=== PATIENT | male | born 1995 | race Caucasian/White ===

== ENCOUNTER 2019-12-28 12:15 | Day surgery (SDC) | payer OTHER ==
[2019-12-24 17:36] VITALS: BMI 18.8
[2019-12-28] MEDS ORDERED: oxyCODONE HCL 5 MG TABLET PO PRN (15:48)
[2019-12-28] MEDS ORDERED: ONDANSETRON 4 MG/2 ML VIAL IVPUSH PRN (15:48)
[2019-12-28] MEDS ORDERED: LACTATED RINGERS SOLUTION 1,000 ML IV SCH (16:00)
[2019-12-28] MEDS ORDERED: MIDAZOLAM HCL 2 MG/2 ML SINGLE DOSE VIAL ONE ×3 (16:42→16:50)
[2019-12-28] MEDS ORDERED: SUCCINYLCHOLINE CHLORIDE 200 MG/10 ML SYRINGE ONE (16:43)
[2019-12-28] MEDS ORDERED: PROPOFOL 20 ML ONE (16:51)
--- NOTE | 2019-12-28 16:57 | OP ---
Operative Note - Note: Operative Date: 12/28/19 Pre-Operative Diagnosis: Left renal stone Operation: Left ESWL Findings: 7 mm upper renal stone Post-Operative Diagnosis: Same as Pre-op Anesthesia: Fractional Estimated Blood Loss (mls): 0 Operative Report Dictated: Yes
[2019-12-28] MEDS ORDERED: oxyCODONE HCL 5 MG TABLET ONE (18:37)
[2019-12-28 18:49] VITALS: TEMP 98.1
[2019-12-28 19:15] VITALS: BP 121/71; PULSE 74
--- NOTE | 2019-12-29 15:59 | OP ---
DATE OF OPERATION: 12/28/2019 PREOPERATIVE DIAGNOSIS: Left renal stone. POSTOPERATIVE DIAGNOSIS: Left renal stone. PROCEDURE: Left extracorporeal shock-wave lithotripsy. ATTENDING: Rigo Garg MD ANESTHESIA: Fractional. DESCRIPTION OF PROCEDURE: The patient was brought in the operating room and placed in a supine position on the operating room table. Ultrasonography and fluoroscopy were performed. A 6-mm stone was noted in the left upper pole of the kidney. At this point, anesthesia and preoperative antibiotics were administered. Shock-wave lithotripsy was then started; 2500 impulses at 18 joules of power were administered to the stone. Excellent fragmentation of the stone was noted. The patient tolerated the procedure very well. No complications were noted. DISPOSITION OF THE PATIENT: To recovery room. RIGO GARG M.D. [id number]
== END 2019-12-28 19:05 | disposition home or self-care (01) ==
LOC: JASU-SURG 12:15
PROVIDERS: ATTEND Urology
PROC: 0TF4XZZ Fragmentation in Left Kidney Pelvis, External Approach (ICD-10-PCS; principal; 2019-12-28 14:45)
DX: N20.0 Calculus of kidney (principal)

== ENCOUNTER 2020-01-31 10:32 | Emergency (ER) | payer OTHER ==
[2020-01-31 10:36] VITALS: TEMP 97.6; BMI 18.1
[2020-01-31] MEDS ORDERED: MAG HYDROX/AL HYDROX/SIMETH 30 ML UNIT-DOSE CUP PO ONE (11:03)
[2020-01-31] MEDS ORDERED: FAMOTIDINE 20 MG/50 ML IVPB 20 MG/50 ML MG IVPB ONE ×2 (11:03→11:09)
[2020-01-31] MEDS ORDERED: METOCLOPRAMIDE HCL INJECTION 10 MG/2 ML VIAL IVPUSH ONE (11:03)
[2020-01-31] MEDS ORDERED: LACTATED RINGERS SOLUTION 1000 ML INFUS.BAG IV ONE (11:03)
--- NOTE | 2020-01-31 11:05 | PDOC ---
History of Present Illness - General Chief Complaint: Nausea/Vomiting Stated Complaint: VOMITING Time Seen by Provider: 01/31/20 10:49 History Source: Patient - History of Present Illness Initial Comments: 01/31/20 11:23 Mr. Cortez is a 24 y/o M w/no PMH p/w four days of nausea, vomiting, abdominal pain. He reports that his symptoms began the morning following significant EtOH intake. He reports that starting on morning he began to experience 8/10 non-radiating bilateral lower quadrant aching abdominal pain. He reports being unable to tolerate any food po aside from small sips of water, with other intake resulting in immediate nbnb vomiting. He reports approx x6 nbnb vomiting since last night. He denies diarrhea, constipation, fevers, chest pain, sob. No prior abdominal surgeries, no sick contacts. Past History - Past Medical History Allergies/Adverse Reactions: Allergies Allergy/AdvReac Type Severity Reaction Status Date / Time No Known Allergies Allergy Verified 01/31/20 10:36 Home Medications: Ambulatory Orders NK [No Known Home Medication] 12/24/19 COPD: No - Immunization History Immunization Up to Date: Yes - Psycho Social/Smoking Cessation Hx Smoking History: Current every day smoker Have you smoked in the past 12 months: Yes Information on smoking cessation initiated: No Hx Alcohol Use: Yes (3XWK) Drug/Substance Use Hx: Yes (MARIJUANA) Substance Use Type: Marijuana Hx Substance Use Treatment: No Review of Systems - Review of Systems Able to Perform ROS?: Yes Comments:: 01/31/20 11:30 GENERAL/CONSTITUTIONAL:Chills. Body aches. No fever. No weakness. HEAD, EYES, EARS, NOSE AND THROAT: No change in vision. No ear pain or discharge. No sore throat. CARDIOVASCULAR: No chest pain or shortness of breath RESPIRATORY: No cough, wheezing, or hemoptysis. GASTROINTESTINAL: No nausea, vomiting, diarrhea or constipation. GENITOURINARY: No dysuria, frequency, or change in urination. MUSCULOSKELETAL: No joint or muscle swelling or pain. No neck or back pain. SKIN: No rash NEUROLOGIC: No headache, vertigo, loss of consciousness, or change in strength/sensation. ENDOCRINE: No increased thirst. No abnormal weight change HEMATOLOGIC/LYMPHATIC: No anemia, easy bleeding, or history of blood clots. ALLERGIC/IMMUNOLOGIC: No hives or skin allergy. *Physical Exam - Vital Signs Last Vital Signs Temp Pulse Resp BP Pulse Ox 97.6 F 117 H 18 155/94 98 01/31/20 10:33 01/31/20 10:33 01/31/20 10:33 01/31/20 10:33 01/31/20 10:33 - Physical Exam 01/31/20 14:49 GENERAL: Awake, alert, and fully oriented, in no acute distress HEAD: No signs of trauma, normocephalic, atraumatic EYES: PERRLA, EOMI, sclera anicteric, conjunctiva clear ENT: Auricles normal inspection, hearing grossly normal, nares patent, oropharynx clear without exudates. Moist mucosa NECK: Normal ROM, supple, no lymphadenopathy, JVD, or masses LUNGS: No distress, speaks full sentences, clear to auscultation bilaterally HEART: Regular rate and rhythm, normal S1 and S2, no murmurs, rubs or gallops, peripheral pulses normal and equal bilaterally. ABDOMEN: Soft, nontender, normoactive bowel sounds. No guarding, no rebound. N o masses EXTREMITIES : Normal inspection, Normal range of motion, no edema. No clubbing or cyanosis NEUROLOGICAL: Cranial nerves II through XII grossly intact. Normal speech, normal gait, no focal sensorimotor deficits SKIN: Warm, Dry, normal turgor, no rashes or lesions noted ED Treatment Course - LABORATORY CBC & Chemistry Diagram: 01/31/20 11:26 01/31/20 11:26 Medical Decision Making - Medical Decision Making 24M w/no PMH p/w acute onset N/V/abdominal pain morning after EtOH intake. Ddx pancreatitis, viral GI infection, PUD. Patient requests HIV test. Plan: CBC CMP EKG CXR Pepcid Maalox Zofran Reglan 1L LR HIV test Dispo: Discharge pending reassessment --- CBC, CMP - indicative of hemoconcentration. Cr elevation likely pre-renal. Plan for additional fluid bolus. HIV - negative --- He reports resolution of symptoms s/p medications. Plan for po challenge. --- He reports po intake without difficulty, nausea, or vomiting. Plan for discharge with close PCP follow up. Discharge - Discharge Information Problems reviewed: Yes Clinical Impression/Diagnosis: Nausea and vomiting Qualifiers: Vomiting type: unspecified Vomiting Intractability: non-intractable Qualified Code(s): R11.2 - Nausea with vomiting, unspecified Condition: Stable Disposition: HOME - Admission No - Follow up/Referral Referrals: [facility] [place] [facility] at [place] [Provider Group] - Patient Discharge Instructions Patient Printed Discharge Instructions: DI for Alcohol Abuse, DI for Nausea -- Adult, DI for Vomiting -- Adult Additional Instructions: You were seen in the ER for vomiting, nausea. Your symptoms improved with medication. Your bloodwork showed that you were dehydrated - we gave you fluids through the IV. We are giving you a referral with the [facility] - be sure to call to make an appointment so that you can follow up with a primary care provider. Return to the ER if you develop high fevers, intractable vomiting, or severe pain. - Post Discharge Activity Work/Back to School Note: Back to Work
[2020-01-31] MEDS ORDERED: METOCLOPRAMIDE HCL INJECTION 10 MG/2 ML VIAL ONE (11:08)
[2020-01-31] MEDS ORDERED: MAG HYDROX/AL HYDROX/SIMETH 30 ML UNIT-DOSE CUP ONE (11:08)
[2020-01-31] MEDS ORDERED: SODIUM CHLORIDE 0.9% 500 ML INFUS.BAG IV ONE ×2 (11:27→12:41)
--- NOTE | 2020-01-31 11:33 | PDOC ---
Attending Attestation - Resident Resident Name: Ottoniel Irby - HPI HPI: 01/31/20 12:11 24 y/o male here in ED c/o nausea and vomiting all meals and even water since 01-27-20. Pt here in ED yesterday just requesting testing for COVID 19 had throat cx sent and pt discharged home. Pt admits to drinking alcohol on saturday night but not since then. Pt denies having withdrawal symptoms in the past 01/31/20 12:20 - Physicial Exam PE: 01/31/20 12:14 General: Pt is thin and slightly tremoulous HEENT: NCAT, SLY, dry mucus membranes tongue coatd white, mild tongue fasiculations Lungs: + bs ashwini cta Heart:S1S2 regular Abd: + bs abd flat no guarding or rigidity ext: no edema, mild hand tremors Neuro: pt is alert and oriented x3 01/31/20 12:21 02/01/20 07:53 - Medical Decision Making 02/01/20 07:33 24 y/o male here in ED c/o excessive nausea and vomiting x 4 days. Pt says everything that he eats or drinks triggered vomiting.Pt is tremulous and very thin. Admits to drinking alcohol 3-4 times a week but never considered his drink ing a problem. Pt also reports recent weight loss, and frequent headaches. DD includes but not limited to alcohol withdrawal,gastritis, viral syndrome,Hyperthyroidism, pancreatitis,HIV,occult malignacy Plan: cbc,cmp, tsh, HIV, amylase , lipase,IV fluid and reevaluate. Pt lab results noted. Pt with elevated creatinine,maybe secondary to volume depletion. Pt with abnormal cbc elevated hgb,has neutropenia, lymphocytosis,negative hiv test. Pt is feeling better after IV fluid and wants to eat. PT is stable for dc home at this time, but will require further out pt f/u and work up for his symptoms. PT given referral to out pt clinic, pt to return to ED for fever, trouble breatheing,or as needed. 02/01/20 07:47 02/01/20 07:53 Discharge - Discharge Information Problems reviewed: Yes Clinical Impression/Diagnosis: Nausea and vomiting Qualifiers: Vomiting type: unspecified Vomiting Intractability: non-intractable Qualified Code(s): R11.2 - Nausea with vomiting, unspecified Condition: Stable Disposition: HOME - Follow up/Referral Referrals: [facility] [place] Internal [facility] at [place] [Provider Group] - Patient Discharge Instructions Patient Printed Discharge Instructions: DI for Alcohol Abuse, DI for Nausea -- Adult, DI for Vomiting -- Adult Additional Instructions: You were seen in the ER for vomiting, nausea. Your symptoms improved with medication. Your bloodwork showed that you were dehydrated - we gave you fluids through the IV. We are giving you a referral with the [facility] - be sure to call to make an appointment so that you can follow up with a primary care provider. Return to the ER if you develop high fevers, intractable vomiting, or severe pain. - Post Discharge Activity Work/Back to School Note: Back to Work
[2020-01-31 12:10] LABS: BASO % 0.6 % (0-2.0); EOS % 0.1 % (0-4.5); HEMATOCRIT 58.8 % (35.4-49); LYMPH % 46.6 % (8-40); MCH 31.9 pg (25.7-33.7); MEAN CELL VOLUME 91.1 fl (80-96); MEAN PLT VOLUME 8.5 fl (7.5-11.1); MONO % 22.8 % (3.8-10.2); NEUT % 29.9 % (42.8-82.8); PLATELET COUNT 229 K/MM3 (134-434); RBC 6.45 M/mm3 (4.00-5.60); RDW 13.6 % (11.9-15.9); WHITE BLOOD COUNT 2.8 K/mm3 (4.0-10.0)
[2020-01-31 12:32] LABS: ALBUMIN 4.7 g/dl (3.4-5.0); BLOOD UREA NITROGEN 35.7 mg/dL (7-18); CALCIUM 9.2 mg/dL (8.5-10.1); CREATININE 1.8 mg/dL (0.55-1.3); TOT PROT 9.1 g/dl (6.4-8.2)
[2020-01-31 12:41] LABS: HEMOGLOBIN 20.6 GM/dL (11.7-16.9)
[2020-01-31 12:54] LABS: ANISOCYTOSIS 0; MACROCYTOSIS 0; PLATELET ESTIMATE NORMAL
[2020-01-31 15:06] VITALS: BP 118/75; PULSE 87
--- NOTE | 2020-01-31 17:33 | EKG ---
Test Reason : Blood Pressure : / mmHG Vent. Rate : 077 BPM Atrial Rate : 077 BPM P-R Int : 154 ms QRS Dur : 106 ms QT Int : 392 ms P-R-T Axes : 056 085 071 degrees QTc Int : 443 ms NORMAL SINUS RHYTHM WITH SINUS ARRHYTHMIA POSSIBLE ANTERIOR INFARCT , AGE UNDETERMINED ABNORMAL ECG NO PREVIOUS ECGS AVAILABLE Confirmed by MD Flores Daniel ([id number]) on 01/31/2020 5:33:14 PM Referred By: Confirmed By:Bryson Flores MD
== END 2020-01-31 14:47 | disposition home or self-care (01) ==
LOC: JER 10:32
PROC: 3E033GC Introduction of Other Therapeutic Substance into Peripheral Vein, Percutaneous Approach (ICD-10-PCS; principal; 2020-01-31)
PROC: 3E033GC Introduction of Other Therapeutic Substance into Peripheral Vein, Percutaneous Approach (ICD-10-PCS; 2020-01-31)
DX: R11.2 Nausea with vomiting, unspecified (principal); F10.10 Alcohol abuse, uncomplicated; F17.210 Nicotine dependence, cigarettes, uncomplicated
CPT/HCPCS: 36415; 71046-TC-FY; 74019-TC-FY; 80053; 83690; 84443; 85025; 87389; 93005; 93010; 99285-25

== ENCOUNTER 2020-05-16 10:39 | Day surgery (SDC) | payer OTHER ==
[2020-05-13 13:21] VITALS: BMI 18.8
[2020-05-16] MEDS ORDERED: KETOROLAC TROMETHAMINE 30 MG/1 ML VIAL ONE (13:12)
[2020-05-16] MEDS ORDERED: MIDAZOLAM HCL 2 MG/2 ML SINGLE DOSE VIAL ONE ×2 (13:12→13:29)
--- NOTE | 2020-05-16 14:22 | OP ---
Operative Note - Note: Operative Date: 05/16/20 Pre-Operative Diagnosis: Right renal stone Operation: Right ESWL Findings: 8 mm pelvic area Right renal stone Post-Operative Diagnosis: Same as Pre-op Anesthesia: Fractional Estimated Blood Loss (mls): 0
--- NOTE | 2020-05-16 14:32 | EKG ---
Test Reason : Blood Pressure : / mmHG Vent. Rate : 053 BPM Atrial Rate : 053 BPM P-R Int : 164 ms QRS Dur : 114 ms QT Int : 420 ms P-R-T Axes : 008 071 063 degrees QTc Int : 394 ms SINUS BRADYCARDIA WITH MARKED SINUS ARRHYTHMIA EARLY REPOLARIZATION OTHERWISE NORMAL ECG WHEN COMPARED WITH ECG OF 31-JAN-2020 12:49, NONSPECIFIC T WAVE ABNORMALITY NO LONGER EVIDENT IN INFERIOR LEADS T WAVE AMPLITUDE HAS INCREASED IN LATERAL LEADS Confirmed by PRINCESS DESIR MD ([id number]) on 05/16/2020 2:31:21 PM Referred By: NEELA MERRITT DR Confirmed By:PRINCESS DESIR MD
[2020-05-16 15:10] VITALS: TEMP 97.7
[2020-05-16 15:28] VITALS: BP 120/66; PULSE 58
--- NOTE | 2020-05-17 09:43 | OP ---
DATE OF OPERATION: 05/16/2020 PREOPERATIVE DIAGNOSIS: Right renal stone. POSTOPERATIVE DIAGNOSIS: Right renal stone. PROCEDURE: Right extracorporeal shockwave lithotripsy. ATTENDING: Rigo Garg MD ANESTHESIA: Fractional. DESCRIPTION OF OPERATION: Patient was brought in the operating room and placed in the supine position on the operating room table. Ultrasonography and fluoroscopy were performed. An 8-mm stone was noted in the right renal pelvis. At this point anesthesia and preoperative antibiotics were administered. Shockwave lithotripsy was then performed; 3000 impulses at 18 joules of power were administered to the stone with excellent fragmentation of the stone noted under realtime ultrasonography and fluoroscopy. Patient tolerated procedure very well. There were no complications noted. RIGO GARG M.D. /[id number]
== END 2020-05-16 16:00 | disposition home or self-care (01) ==
LOC: JASU-SURG 10:39
PROVIDERS: ATTEND Urology
PROC: 0TF3XZZ Fragmentation in Right Kidney Pelvis, External Approach (ICD-10-PCS; principal; 2020-05-16 11:00)
DX: N20.0 Calculus of kidney (principal)
CPT/HCPCS: 93005; 93010; 94760

== ENCOUNTER 2020-07-01 06:14 | Emergency (ER) | payer OTHER ==
[2020-07-01 07:03] VITALS: BP 134/61; PULSE 84; TEMP 97.8; BMI 27.7
--- NOTE | 2020-07-01 07:04 | PDOC ---
History of Present Illness - General Chief Complaint: Laceration Stated Complaint: RIGHT THUMB CUT Time Seen by Provider: 07/01/20 07:04 - History of Present Illness Initial Comments: 07/01/20 07:26 24 M with no PMH presented here for right thumb laceration. It just happened acutely about one hour (around 5:45 am) while he is at work. Patient is right handed. 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 No b leeding pulsation noted. No N/V/D/F/C. No distress. Tetanus shot was unclear per patient. PMH: none PSH: none ALlergy: none Med: none Immunization: unknown SS: gillian. PCP: none 07/01/20 07:52 ROS GENERAL/CONSTITUTIONAL: No fever or chills. No weakness. HEAD, EYES, EARS, NOSE AND THROAT: No change in vision. No ear pain or discharge. No sore throat. CARDIOVASCULAR: No chest pain or shortness of breath RESPIRATORY: No cough, wheezing, or hemoptysis. GASTROINTESTINAL: No nausea, vomiting, diarrhea or constipation. GENITOURINARY: No dysuria, frequency, or change in urination. MUSCULOSKELETAL: +finger pain. No neck or back pain. SKIN: No rash NEUROLOGIC: No headache, vertigo, loss of consciousness, or change in strength/sensation. ENDOCRINE: No increased thirst. No abnormal weight change HEMATOLOGIC/LYMPHATIC: No anemia, easy bleeding, or history of blood clots. ALLERGIC/IMMUNOLOGIC: No hives or skin allergy. PE GENERAL: Awake, alert, and fully oriented, in no acute distress HEAD: No signs of trauma, normocephalic, atraumatic EYES: PERRLA, EOMI, sclera anicteric, conjunctiva clear ENT: Auricles normal inspection, hearing grossly normal, nares patent, oropharynx clear without exudates. Moist mucosa NECK: Normal ROM, supple, no lymphadenopathy, JVD, or masses LUNGS: No distress, speaks full sentences, clear to auscultation bilaterally HEART: Regular rate and rhythm, normal S1 and S2, no murmurs, rubs or gallops, peripheral pulses normal and equal bilaterally. ABDOMEN: Soft, nontender, normoactive bowel sounds. No guarding, no rebound. No masses EXTREMITIES : Normal range of motion, right first digit 2.5 cm laceration superficial at distal palmar aspect, normal pulses. neurovascular intact. NEUROLOGICAL: Cranial nerves II through XII grossly intact. Normal speech, normal gait, no focal sensorimotor deficits SKIN: Warm, Dry, normal turgor, no rashes or lesions noted 07/01/20 07:56 MDM: Xray for foreign body Laceration repair with lidocaine. Xray showed no foreign body Laceration repair with 4 stiches : proline 3.0. Minimal bleeding, and controlled. Tetanus shot was given. Wound care was given verbally and on the paper. Patient can go back to work after 3 days. 07/01/20 07:59 07/01/20 08:05 Past History - Medical History Allergies/Adverse Reactions: Allergies Allergy/AdvReac Type Severity Reaction Status Date / Time No Known Allergies Allergy Verified 07/01/20 06:58 Home Medications: Ambulatory Orders NK [No Known Home Medication] 12/24/19 Anemia: No Asthma: No Cancer: No Cardiac Disorders: No CVA: No COPD: No CHF: No Dementia: No Diabetes: No GI Disorders: No Disorders: No HTN: No Hypercholesterolemia: No Liver Disease: No Seizures: No Thyroid Disease: No - Immunization History Immunization Up to Date: Yes - Psycho-Social/Smoking History Smoking History: Never smoked Have you smoked in the past 12 months: No If you are a former smoker, when did you quit?: 11yrs ago - Substance Abuse Hx (Audit-C & DAST Scrn) How often the patient has a drink containing alcohol: Never Score: In Men: 4 or > Positive; In Women: 3 or > Positive: 0 Screen Result (Pos requires Nsg. Audit-10AR): Negative *Physical Exam - Vital Signs Last Vital Signs Temp Pulse Resp BP Pulse Ox 97.8 F 84 18 134/61 99 07/01/20 06:59 07/01/20 06:59 07/01/20 06:59 07/01/20 06:59 07/01/20 06:59 Procedures - Laceration/Wound Repair 1st digit Wound Length: to 2.5 cm Wound Explored: clean Wound's Depth, Shape: superficial Irrigated w/ Saline: Yes Anesthesia: 1% Lidocaine Amount of Anesthetic (ccs): 3 Wound Debrided: minimal Wound Repaired With: Sutures Suture Size/Type: 3:0, proline Number of Sutures: 4 Sterile Dressing Applied: Yes Discharge - Discharge Information Problems reviewed: Yes Clinical Impression/Diagnosis: Laceration Condition: Good Disposition: HOME - Follow up/Referral - Patient Discharge Instructions Patient Printed Discharge Instructions: DI for Laceration Repair Additional Instructions: Suture removal here in the ED 7 to 10 days. Return for any redness or swelling keep covered for 24 hours you may apply bacitracin twice daily. Return for any redness swelling yellow discharge or other concerns for infection - Post Discharge Activity Work/Back to School Note: Back to Work
[2020-07-01] MEDS ORDERED: TETANUS AND DIPHTHERIA TOXOID 0.5 ML DISP.SYRIN IM ONE (07:16)
[2020-07-01] MEDS ORDERED: DIPHTH,PERTUSS(ACELL),TET 0.5 ML DISP.SYRIN IM ONE (07:37)
--- NOTE | 2020-07-01 07:59 | PDOC ---
Attending Attestation - Resident Resident Name: Yinka Lin - ED Attending Attestation I have performed the following: I have examined & evaluated the patient, The case was reviewed & discussed with the resident, I agree w/resident's findings & plan, Exceptions are as noted - HPI HPI: 07/01/20 07:56 24-year-old male no past medical history here today after sustaining a right thumb laceration. 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 Denies any numbness or weakness following the incident. Happened around 5:45 AM last tetanus is unknown bleeding was controlled with compression no other injury sustained Patient is right-hand dominant - Physicial Exam PE: 07/01/20 07:57 Awake alert no acute distress lungs are clear bilaterally heart is regular with any murmurs rubs or gallops examination of the right hand demonstrates a superficial 1-1/2 cm laceration to the distal palmar fat pad of the thumb flexion at the IP joint and extension is intact sensation is intact distally bleeding is controlled examination of wound shows no foreign body - Medical Decision Making 07/01/20 07:58 24-year-old male status post laceration of the right thumb. Plan interrupted nylon sutures irrigated x-ray to rule out foreign body which was negative tetanus patient be discharged home suture removal in 7 to 10 days Discharge - Discharge Information Problems reviewed: Yes Clinical Impression/Diagnosis: Laceration Condition: Improved Disposition: HOME - Admission No - Follow up/Referral - Patient Discharge Instructions Patient Printed Discharge Instructions: DI for Laceration Repair Additional Instructions: Suture removal here in the ED 7 to 10 days. Return for any redness or swelling keep covered for 24 hours you may apply bacitracin twice daily. Return for any redness swelling yellow discharge or other concerns for infection - Post Discharge Activity Work/Back to School Note: Back to Work
== END 2020-07-01 08:16 | disposition home or self-care (01) ==
LOC: JER 06:14
PROC: 0HQFXZZ Repair Right Hand Skin, External Approach (ICD-10-PCS; principal; 2020-07-01)
PROC: 3E0234Z Introduction of Serum, Toxoid and Vaccine into Muscle, Percutaneous Approach (ICD-10-PCS; 2020-07-01)
DX: S61.011A Laceration without foreign body of right thumb without damage to nail, initial encounter (principal)
CPT/HCPCS: 73140-TC-RT-FY; 99284-25

== ENCOUNTER 2020-11-14 04:46 | Day surgery (SDC) | payer OTHER ==
[2020-11-09 12:24] VITALS: BMI 18.5
[2020-11-14] MEDS ORDERED: MIDAZOLAM HCL 2 MG/2 ML SINGLE DOSE VIAL ONE (11:10)
[2020-11-14 17:53] VITALS: TEMP 98
[2020-11-14 18:02] VITALS: BP 120/70; PULSE 78
== END 2020-11-14 13:45 | disposition home or self-care (01) ==
LOC: JASU-SURG 04:46
PROVIDERS: ATTEND Urology
PROC: 0TF3XZZ Fragmentation in Right Kidney Pelvis, External Approach (ICD-10-PCS; principal; 2020-11-14 10:30)
DX: N20.0 Calculus of kidney (principal)
CPT/HCPCS: 94760

== ENCOUNTER 2021-01-05 04:34 | Day surgery (SDC) | payer OTHER ==
[2021-01-04 15:03] VITALS: BMI 18.9
[2021-01-05] MEDS ORDERED: LIDOCAINE HCL 2% JELLY 10 ML CARTRIDGE ONE (10:27)
[2021-01-05] MEDS ORDERED: LIDOCAINE HCL 2% JELLY 10 ML CARTRIDGE TP ONE (10:47)
[2021-01-05] MEDS ORDERED: ACETAMINOPHEN INJECTION 100 ML IVPB ONE (10:59)
[2021-01-05 11:42] VITALS: TEMP 98.4
[2021-01-05 12:07] VITALS: BP 133/95; PULSE 88
== END 2021-01-05 12:21 | disposition home or self-care (01) ==
LOC: JASU-ENDO 04:34
PROVIDERS: ATTEND Internal Medicine Gastroenterology
PROC: 06LY4CC Occlusion of Hemorrhoidal Plexus with Extraluminal Device, Percutaneous Endoscopic Approach (ICD-10-PCS; principal; 2021-01-05 09:30)
DX: K64.2 Third degree hemorrhoids (principal)